=== PATIENT | male | born 1935 | race Caucasian/White ===

== ENCOUNTER → 2016-10-02 | Outpatient (CLI) | payer MEDICARE ==
[~2016-10-02] MED LIST: ACCUNEB SOL3 ML/NE1 IN; ACCUPRIL20 MG PO; ALLOPURINOL100 MG PO; AVAPRO 150MG T150 MG PO; BUDESONIDE0.25 MG/1 IH; BUDESONIDE0.25 MG/2 IH; CALCIUM 500500 M1 PO; CARVEDILOL 1212.5 MG PO; CEFDINIR300 MG PO; CLONAZEPAM 1MG T1 MG PO; COLCRYS0.6 M1 PO; COLCRYS0.6 MG GT; COREG 12.5 MG12.5 MG PO; COREG25 MG PO; CRESTOR10 MG PO; DIGOXIN0.125 MG PO; FEXOFENADINE180 MG OR; FEXOFENADINE60 MG PO; FINASTERIDE5 MG PO; FLOMAX 0.4MG C0.4 MG PO; FLONASE 50 MCG16 GM; FUROSEMIDE80 MG PO; GABAPENTIN 100100 MG PO; GABAPENTIN100 M2 PO; GABAPENTIN300 M1 PO; GABAPENTIN300 MG PO; HYDRALAZINE HCL25 M1 PO; ISORDIL 10MG. T10 MG PO; K-DUR 1010 MEQ PO; LANOXIN 0.25M0.25 MG PO; LASIX 80MG. TAB80 MG PO; LEVOTHYROXIN0.025 M1 PO; LISINOPRIL 5MG T5 MG PO; LOSARTAN POTAS100 MG PO; METOLAZONE2.5 MG PO; METOPROLOL50 MG PO; MIRALAX17 GM/PACK PO; NEXIUM20 MG PO; OXYGEN2 XX; PHENERGAN VC +120 ML PO; POTASSIUM CHLO20 ME2 PO; PRAVASTATIN 20M20 MG PO; PRAVASTATIN20 MG PO; PREDNICOT10 MG PO; PROSCAR 5MG TABL5 MG PO; QUINAPRIL20 MG PO; QVAR0.04 MG/AC IH; SPIRONOLACTONE25 MG PO; TEKTURNA300 MG PO; WARFARIN SOD5 M1 PO; WARFARIN SOD5 MG PO; ZAROXOLYN 2.5M2.5 MG PO
== END ==
LOC: LAB 15:06
DX: N18.3 Chronic kidney disease, stage 3 (moderate) (principal); D63.1 Anemia in chronic kidney disease

== ENCOUNTER → 2017-01-02 | Outpatient (CLI) | payer MEDICARE ==
--- NOTE | 2017-01-03 17:57 | RADIOLOGY REPORT PS360 ---
PROCEDURE: 2-D M-mode and color Doppler study INDICATIONS FOR THE TEST: Chest pain COPD Heart Murmur Tobacco Smoking Palpitations Fatigue Syncope Edema Hypertension Diabetes Mellitus Rheumatic Fever SOBXDOE Obesity Hyperlipidemia Family History HD Additional History DIZZINESS,AF,ICD,DIALYSIS DEPENDENT, DR. ZUNIGA NOTIFIED OF PERICARDIAL EFFUSION PATIENT INFORMATION HEIGHT: 75 WEIGHT:205 GENDER: Male B/P:115/62 2-D/M-MODE INTERPRETATION: 2-D MEASUREMENTS OBSERVED VALUES IN CMS Right Ventricular Dimension (RVDd) 2.2 Interventricular Septum (Thickness)(IVsd) 1.0 Left Ventricular Internal Dimensions(LVIDd) 5.0 Left Ventricular Posterior Wall (Thickness)(LVPWd) 1.3 Aortic Root 3.3 Aortic Cusp Separation 1.1 Left Atrial Dimensions (LAD) 5.7 2D 1. Left atrium is moderately enlarged, left ventricle is normal size, there is mild concentric left ventricular hypertrophy, visually estimated ejection fraction of 55% with no obvious regional wall motion abnormality. 2. The right atrium and right ventricle are mildly enlarged, contractility of the right ventricle is normal, there is pacemaker lead seen in the right atrium and right ventricle. 3. The aortic valve is thickened and calcified with moderate reduction in the leaflet mobility. 4. The mitral valve leaflets are minimally thickened and calcified. 5. The tricuspid valve leaflets are minimally thickened. 6. The pulmonic valve is poorly visualized. 7. There is no circumferential pericardial effusion noted. DOPPLER INTERROGATION: 1. The maximum aortic out flow velocity recorded study 3.5 m/s, resulting in a mean gradient across valve of 26 mmHg, consistent with moderate aortic stenosis, there is mild aortic insufficiency present, the aortic valve area is not accurately calculated. 2. The mitral inflow velocity within normal range, there is no mitral stenosis there is mild mitral regurgitation. 3. There is mild tricuspid regurgitation noted, calculated right ventricular systolic pressure is between 65 to 70 mmHg consistent with moderate pulmonary hypertension. Inferior vena cava is not well visualized. 4. The mitral inflow or tricuspid inflow velocities are not recorded with respiratory cycle, hence the intrapericardial pressure cannot be determined, however there is no obvious ventricular interdependence or right ventricle are diastolic collapse seen. CONCLUSION: 1. Moderately enlarged left atrium, normal left ventricular size, mild concentric left ventricular hypertrophy, visually estimated ejection fraction approximately 55% with no obvious regional wall motion abnormality. 2. Mildly enlarged right atrium and right ventricle, contractility of the right ventricle is normal, there is pacemaker lead seen in the right atrium and right ventricle. 3. Thickened and calcified aortic valve with mean gradient across valve of 26 mmHg represents moderate aortic stenosis, there is mild aortic insufficiency. 4. Mild mitral and tricuspid regurgitation, calculated right ventricular systolic pressure is between 65 to 70 mmHg consistent with moderate pulmonary hypertension, inferior vena cava is not well visualized. 5. The mitral inflow and tricuspid inflow velocities are not recorded with respiratory cycle, end-stage intrapericardial pressure cannot be determined however there is no obvious ventricular interdependence on right ventricle are diastolic collapse seen. 6. Large circumferential pericardial effusion as described above.
== END ==
LOC: RT 09:54
DX: R42 Dizziness and giddiness (principal); I42.8 Other cardiomyopathies; N18.6 End stage renal disease; Z99.2 Dependence on renal dialysis; I95.9 Hypotension, unspecified

== ENCOUNTER → 2017-02-25 | Outpatient (CLI) | payer MEDICARE ==
--- NOTE | 2017-02-25 20:07 | RADIOLOGY REPORT PS360 ---
PROCEDURE: 2-D M-mode and color Doppler study INDICATIONS FOR THE TEST: Chest pain COPD Heart Murmur Tobacco Smoking Palpitations Fatigue Syncope Edema Hypertension Diabetes Mellitus Rheumatic Fever SOBXDOEXObesity Hyperlipidemia Family History HD Additional History AF,PACER,PERICARDIAL EFF PATIENT INFORMATION HEIGHT: 75 WEIGHT:200 GENDER: Male B/P:112/72 2-D/M-MODE INTERPRETATION: 2-D MEASUREMENTS OBSERVED VALUES IN CMS Right Ventricular Dimension (RVDd) 3.9 Interventricular Septum (Thickness)(IVsd) 1.1 Left Ventricular Internal Dimensions(LVIDd) 4.7 Left Ventricular Posterior Wall (Thickness)(LVPWd) 1.2 Aortic Root 2.9 Aortic Cusp Separation 1.1 Left Atrial Dimensions (LAD) 6.2 2D 1. Left atrium is markedly enlarged, left ventricle is normal size, there is mild concentric left ventricular hypertrophy, visually estimated ejection fraction of 50% with no obvious regional wall motion abnormality. 2. The right atrium is moderately enlarged, right ventricle is moderately dilated with mildly reduced contractility, there is pacemaker lead seen in the right atrium and right ventricle. 3. The aortic valve is thickened and calcified with restriction the leaflet mobility. 4. The mitral valve has mitral calcification which extends and both anterior and posterior mitral leaflet. 5. The tricuspid valve leaflets are minimally thickened. 6. The pulmonic valve is poorly visualized. 7. There is large circumferential pericardial effusion noted. DOPPLER INTERROGATION: 1. The maximum aortic out flow velocity recorded study 3.7 m/s, resulting in a mean gradient across valve of 35 mmHg, valve area is not accurately calculated, this likely represents moderate aortic stenosis, there is mild aortic insufficiency. 2. The mitral inflow velocity has tall with restrictive filling pattern suggestive of raised left ventricular end-diastolic pressure, there is no mitral stenosis, there is mild mitral regurgitation. 3. There is moderate tricuspid regurgitation noted, calculated right ventricular systolic pressure 66 mmHg consistent with moderate bony hypertension, inferior vena cava is dilated without inspiratory collapse. CONCLUSION: 1. Biatrial enlargement as described above, mild concentric left ventricular hypertrophy, visually estimated ejection fraction 50% with no obvious regional wall motion abnormality, Doppler evidence of raised left ventricular end-diastolic pressure. 2. Moderately enlarged right ventricle with mild reduced contractility. 3. There is large size circumferential pericardial effusion noted, with dilated inferior vena cava without inspiratory collapse, and mild early diastolic collapse of the right ventricle is within the concern is for presence of raised intrapericardial pressure and possible tamponade physiology. 4. Thickened and calcified aortic valve with restriction the leaflet mobility, however Doppler is indicated of at least moderate aortic stenosis, mean gradient is 35 mmHg, there is mild aortic insufficiency present. 5. Moderate tricuspid regurgitation, calculated right ventricular systolic pressure is 66 mmHg consistent with moderate bony hypertension.
== END ==
LOC: RT 08:37
DX: I31.3 Pericardial effusion (noninflammatory) (principal); I27.0 Primary pulmonary hypertension